=== PATIENT | female | born 1970 | race Caucasian/White ===

== ENCOUNTER 2021-10-07 07:21 | Day surgery (SDC) | payer BC, SELFPAY ==
--- NOTE | 2021-10-06 12:27 | HO.ANESPROP2 ---
Documented by User: Kasia Posada NP 10/06/21 14:05 HPI - Anesthesia Eval Consult details Narrative: 51yo F for Left Removal Ingrown Toenails, great toe suppan nail matricectomy [facility] Past Medical History Medical History Anxiety Epilepsy Surgical History Surgical History Hx laparoscopic cholecystectomy Hx of elbow surgery Hx of total hysterectomy with removal of both tubes and ovaries Social History Social History Patient Tobacco Use Status: Never used Tobacco Second Hand Smoke Exposure: No Use of substances other than those prescribed or required for medical reasons: No Are you DNR?: No Advance Directives: No (unknown) Advance Directives Information Provided: Yes (brochure mailed) Advance Directives on File: No Patient : No Meds Allergies Allergy/AdvReac Type Severity Reaction Status Date / Time No Known Allergies Allergy Unverified 05/21/20 14:58 Home Medications Medication Instructions Recorded Confirmed Last Taken Type alprazolam 0.5 mg tablet (Xanax) 0.5 mg PO BID PRN 10/01/21 10/01/21 Unknown History cholecalciferol (vitamin D3) 50 50 mcg PO DAILY 10/01/21 10/01/21 Unknown History mcg (2,000 unit) capsule (Vitamin D3) citalopram 40 mg tablet (Celexa) 40 mg PO DAILY 10/01/21 10/01/21 Unknown History lamotrigine 200 mg tablet 200 mg PO BID 10/01/21 10/01/21 Unknown History (Lamictal) topiramate 25 mg tablet 25 mg PO BEDTIME 10/01/21 10/01/21 Unknown History topiramate 25 mg tablet 50 mg PO QAM 10/01/21 10/01/21 Unknown History Exam Exam Date and Time: October 06, 2021 1227 Height,Weight and Vital Signs: Weight 58.06 kg Assessment and Plan Assessment Anesthesia Assessment: Chart Reviewed Documented by User: Vanessa Smalls MD 10/07/21 08:21 [facility] Past Medical History Medical History Anxiety Epilepsy Family History Family history of problems with anesthesia: No Surgical History Surgical History Hx laparoscopic cholecystectomy Hx of elbow surgery Hx of total hysterectomy with removal of both tubes and ovaries History of Problems with Anesthesia: No Social History Social History Patient Tobacco Use Status: Never used Tobacco Second Hand Smoke Exposure: No Use of substances other than those prescribed or required for medical reasons: No Are you DNR?: No Advance Directives: No (unknown) Advance Directives Information Provided: Yes (brochure mailed) Advance Directives on File: No Patient : No Meds Allergies Allergy/AdvReac Type Severity Reaction Status Date / Time No Known Allergies Allergy Unverified 05/21/20 14:58 Home Medications Medication Instructions Recorded Confirmed Last Taken Type alprazolam 0.5 mg tablet (Xanax) 0.5 mg PO BID PRN 10/01/21 10/01/21 Unknown History cholecalciferol (vitamin D3) 50 50 mcg PO DAILY 10/01/21 10/01/21 Unknown History mcg (2,000 unit) capsule (Vitamin D3) citalopram 40 mg tablet (Celexa) 40 mg PO DAILY 10/01/21 10/01/21 Unknown History lamotrigine 200 mg tablet 200 mg PO BID 10/01/21 10/01/21 Unknown History (Lamictal) topiramate 25 mg tablet 25 mg PO BEDTIME 10/01/21 10/01/21 Unknown History topiramate 25 mg tablet 50 mg PO QAM 10/01/21 10/01/21 Unknown History Exam Height,Weight and Vital Signs: Weight 58.06 kg Height 5 ft 4 in Weight 58.513 kg Vital Signs Temp Pulse Resp BP Pulse Ox 10/07/21 07:45 98.1 F 79 16 122/75 99 Airway Mallampati Class: II TM Dist: >3cm Neck ROM: Full Loose/Missing/Broken Teeth: Yes (Some slightly loose) Heart: RRR Lungs: CTAB Assessment and Plan Assessment Anesthesia Assessment: Anesthesia Plan Discussed Final Anesthetic Review Family History of Problems with Anesthesia: No History of Problems with Anesthesia: No NPO: Yes ASA Class: II Final Preanesthetic Review: No Changes in Pt Med Stat, Meds/Allgs Chart Reviewed, Consent Obtained/Reviewed and Anes Risks/Benef Reviewed Patient Risk: Intermediate Procedure Risk: Low Assessment/Block/Sedation in SS: Assess/Block/Sedation-SS Anesthetic Plan Anesthetic Plan: GA and MAC: Disposition: Standard PACU
--- NOTE | 2021-10-06 14:04 | HP_ITS ---
DATE OF SERVICE: 10/07/2021 DATE OF PROPOSED SURGERY: October 07, 2021. PREOPERATIVE DIAGNOSIS: Painful ingrown, left great toenail. PLANNED PROCEDURE: A total soup in nail matricectomy, left great toenail. PLANNED ANESTHESIA: MAC anesthesia. CHIEF COMPLAINT/HISTORY OF PRESENT ILLNESS: This patient is a 51-year-old female who underwent total phenol matricectomy with myself in February of 2020 and unfortunately had a painful regrowth of nail following this procedure. Conservative treatment has been attempted and the patient is now requesting surgical treatment. PAST MEDICAL HISTORY: Remarkable for anemia, depression, epilepsy, history of gallbladder disease, headaches. CURRENT MEDICATIONS: The patient takes Celexa, iron, Lamictal, topiramate. ALLERGIES: THE PATIENT HAS NO KNOWN ALLERGIES OR DRUG SENSITIVITIES. FAMILY HISTORY: Significant for foot problems and history of arthritis and hypertension. SOCIAL HISTORY: The patient denies smoking, denies use of alcohol or any recreational drugs. The patient does relate drinking 2-3 cups of coffee per day. PHYSICAL EXAMINATION: Podiatric physical exam VASCULAR: The patient displays +2/4 pulses, DP and PT arteries bilateral with normal capillary refill time noted bilateral feet. DERMATOLOGIC: Reveals a painful recurrent ingrown toenail of the left great toe with significant thickening and discoloration noted. ORTHOPEDIC: Reveals a normal development in musculature. NEUROLOGIC: Reveals intact sensation. The patient was seen most recently in my office on September 21, 2021. Preoperative informed consent was obtained from the patient that day for her planned left great toenail surgery. Preoperative medical clearance will be provided by the nurse practitioner, Ani and Dr. Rc Mayen office. RL Lei/THUY / [phone]
[2021-10-07 07:45] VITALS: BP 122/75; PULSE 79; RESP 16; TEMP 36.7; O2SAT 99; BMI 22.1
[2021-10-07] MEDS: Lactated Ringers 1,000 ML 100 ML IVCONT (08:15)
--- NOTE | 2021-10-07 08:26 | MHC.SHP ---
Pre-Procedural Eval Section A Date of Service: 10/07/21 The patient is an INPATIENT: No Changes since office visit: No Cold of Flu in the past 2 weeks, No New Medical Problems, No Changes in Medication and No Patient answered all questions Section B Chief Complaint: ingrown toe nail Allergies: Allergies Allergy/AdvReac Type Severity Reaction Status Date / Time No Known Allergies Allergy Unverified 05/21/20 14:58 Plan Diagnosis/Plan: Unchanged I have reviewed the history and physical and performed a pertinent physical examination on my patient. No changes have occurred unless specified.
--- NOTE | 2021-10-07 09:16 | PCN2_ITS ---
Brief Operative Note Date of procedure: 10/07/21 Pre-op diagnosis: ingrown left hallux nail Post-op diagnosis: same Procedure: total excision of nail with suppan matricectomy left hallux Anesthesia: MAC Surgeon: Galen Solis Day Care Teacher: Kelsie Luis Estimated blood loss (mL): 0 Condition: stable Disposition: PACU
[2021-10-07 09:19] VITALS: BP 106/60; PULSE 71; RESP 18; TEMP 36.4; O2SAT 100
[2021-10-07 09:35] VITALS: BP 93/55; PULSE 61; RESP 16; O2SAT 100
[2021-10-07 09:51] VITALS: BP 105/68; PULSE 63; RESP 16; TEMP 36.4; O2SAT 100
--- NOTE | 2021-10-07 10:16 | OP_ITS ---
SURGEON: Galen Solis DPM PREOPERATIVE DIAGNOSIS: Chronic ingrown and deformed left great toenail. POSTOPERATIVE DIAGNOSIS: Chronic ingrown and deformed left great toenail. PROCEDURE PERFORMED: Total removal with Suppan nail matricectomy of the left great toenail. ESTIMATED BLOOD LOSS: COMPLICATIONS: ANESTHESIA: Consisted of local administration of a total of 4 cc of an equal mix of 2% lidocaine with epinephrine 1:100,000 and 0.5% Marcaine plain. Intravenous sedation was provided by the Anesthesia Department. ASSISTANTS: SPECIMENS: INTRODUCTION: The patient was brought to the operating room, placed on the operating table in a supine position. After having been suitably anesthetized with local infiltrative anesthesia, the left lower extremity was then prepped and draped in the usual sterile manner. Please note that prior to start of the procedure, the left great toe was exsanguinated and then a small Adis drain was used at the base of the left great toe, clamped and to provide proper hemostasis. TOTAL EXCISION WITH SUPPAN NAIL MATRICECTOMY, LEFT GREAT TOENAIL. Attention was now directed to the left great toenail where using curved hemostat and an elevator, the nail was freed from its soft tissue attachments and excised from the wound in toto. Once this was achieved, the incision was effected using a #15 blade at the eponychial junction to incise down to the bone and making sure to carry the incisions medially and laterally to excise the nail matrix in toto. A converging transverse incision was effected at the midportion of the nail bed converging with the previous curvilinear incisions and then the nail matrix was dissected free off the periosteum of the distal phalanx of the left great toe entirely. The wound was irrigated. The space remaining was packed with sterile surgical Gelfoam and then the skin margins were caught to maintain utilizing 3-0 nylon simple sutures. CONCLUSION: At the conclusion of this procedure, the operative site was then dressed with sterile Xeroform, Betadine-soaked gauze, Kerlix, Conform. The patient tolerated the surgery and anesthesia well and left the operating room via cart to the recovery room with vital signs stable. FINAL DISPOSITION: The patient is discharged home with instructions for self-care and include the followin. To keep the dressings dry, clean, and intact. 2. To keep the left leg elevated with ice above the ankle. 3. Take all medications as prescribed. 4. To limit activity to minimum. 5. To always use surgical shoe when ambulating. 6. Contact Dr. Solis if any questions or problems arise. 7. The patient will be taking ibuprofen and Tylenol as needed for pain control. [employer] [facility]: Dr. Luis. RL Lei/THUY / [phone]
--- NOTE | 2021-10-07 11:33 | PC.NURSE ---
OK TO SEND PATIENT HOME BY [facility]
== END 2021-10-07 11:45 | disposition home or self-care (01) ==
PROVIDERS: PCP Nurse Practitioner Primary Care; Visit Provider Podiatrist
PROC: (CPT 11750; principal; 2021-10-07 08:40)
DX: L60.0 Ingrowing nail (principal); L60.8 Other nail disorders; G40.909 Epilepsy, unspecified, not intractable, without status epilepticus; D64.9 Anemia, unspecified; F32.9 Major depressive disorder, single episode, unspecified; Z79.899 Other long term (current) drug therapy
CPT/HCPCS: 11750; 88304; 88312; J0690; J1100; J2250